=== PATIENT | female | born 1960 | race African-American/Black ===

== ENCOUNTER → 2021-04-25 | Day surgery (SDC) | payer OTHER ==
[~2021-04-25] VITALS: Ht 162.6 cm; Wt 67.0 kg
[~2021-04-25] MED LIST: CHOL5000 PO; LATA2.5D2 OU; LIDOCAINE 1%/EPI 1:100,000 20 ML VIAL. INJ ONE; MULT-496 PO
[2021-04-25 09:54] VITALS: BP 120/79
--- NOTE | 2021-04-25 10:17 | PREOP HP ---
DATE OF SERVICE: 04/25/2021 HISTORY OF PRESENT ILLNESS: The patient was referred by Dr. Silveira because of a mass of the abdominal wall. Apparently, she has had a history which included in 2001 a hysterectomy and about 2014 had a bowel obstruction from adhesions and had surgery for that. Since then, she has had an increasing mass of abdominal wall, it is above and below the umbilicus and the scar goes just to the left of the umbilicus and carries down and is beginning to be pedunculated. This is obviously not a hypertrophic scar, nor a skin tag. The mass she had it, they tried to inject it and were unsuccessful. At any rate, she is referred to me by her tax associate attorney. PAST MEDICAL HISTORY: Unremarkable except for that as previously mentioned. MEDICATIONS: She does not take any medicine for any diseases. ALLERGIES: SHE IS ALLERGIC TO LATEX. SOCIAL HISTORY: She does not drink or use any illegal drug or smoke. FAMILY HISTORY: Noncontributory. She has not had any of these problems before. PHYSICAL EXAMINATION: GENERAL: Shows an alert female in no acute distress. HEAD, EARS, EYES, NOSE AND THROAT: Grossly normal. CHEST: Clear bilaterally to auscultation. HEART: Had no murmurs, heaves, friction, rubs or thrills. The rate was 70 beats per minute and it was regular. BREASTS: Examination of the breasts was not done. ABDOMEN: Soft. There was no organomegaly and no tenderness, no distention. Pelvic was not done. The midline scar, which extended just to the left and a little bit above the umbilicus from the lysis of adhesions was noted. The upper part of the scar was quite large, has a mass, which is dark thick appears to be going in to the surrounding skin and is painful at times. There is no erythema or redness at this point, but this is obviously a keloid. This is not a hypertrophic scar. At any rate, she has been enlarging and that causing her difficulties with the Velcros across her abdomen there and this large mass causes pain and therefore it needs to be removed. EXTREMITIES: Grossly normal. IMPRESSION AND PLAN: Keloid scar, abdominal wall. Spoke to the patient at length. She understands the procedure and wishes this to be removed and understand most likely it will come back unless she is seen by a tax associate attorney and they could treat it so that it would not have recurrence of the same. She understands that and wishes this to be done. We will proceed. EVANGELIST DR: Sandip TID: [id number]
--- NOTE | 2021-04-25 11:41 | PDOC ---
SURGICAL PROGRESS NOTE DATE: 04/25/21 TIME: 11:40 No change in dictated H&P. Vital Signs Vital Signs Date Time Temp Pulse Resp B/P (MAP) Pulse Ox O2 Delivery O2 Flow Rate FiO2 04/25/21 09:54 83 20 99 Justicifation of Admission Dx: Justifications for Admission: Justification of Admission Dx: Yes BRAULIO WASHINGTON MD Apr 25, 2021 11:41
--- NOTE | 2021-04-25 11:46 | PDOC ---
SURGICAL PROGRESS NOTE DATE: 04/25/21 TIME: 11:43 Op Note: Surgeon........................................Joe Pre op diag....................................9cm mass abd wall Prost op diag.................................same Keloid Anesthesia....................................1% lydocaine with epi Procedure.....................................exc abd wall mass Drains...........................................none Blood loss......................................4cc Fluids...........................................none Condition......................................satisfactory Vital Signs Vital Signs Date Time Temp Pulse Resp B/P (MAP) Pulse Ox O2 Delivery O2 Flow Rate FiO2 04/25/21 09:54 83 20 99 Justicifation of Admission Dx: Justifications for Admission: Justification of Admission Dx: Yes BRAULIO WASHINGTON MD Apr 25, 2021 11:46
--- NOTE | 2021-04-25 11:53 | DISCH ---
DISCHARGE INSTRUCTIONS Condition on Discharge Condition on Discharge: Stable Activity After Discharge Activity Instructions for Disc: Avoid exertion Diet after Discharge Additional Diet Restrictions: none Wound Incision Care Other wound/incision instructi: may shower and leave dressing on as long as possible Follow-Up Follow up with: call and make appt to see me in 10-14 days BRAULIO WASHINGTON MD Apr 25, 2021 11:53
--- NOTE | 2021-04-25 16:31 | OP ---
DATE OF SURGERY: 04/25/2021 SURGEON: Tani Diaz MD PREOPERATIVE DIAGNOSIS: Mass of the skin keloid formation to the left inferior and superior to the umbilicus. POSTOPERATIVE DIAGNOSIS: Mass of the skin keloid formation to the left inferior and superior to the umbilicus. ANESTHESIA: 1% lidocaine with epinephrine. PROCEDURE: Excision of 9 cm mass, abdominal wall. TECHNIQUE: Under local anesthesia, this was to be done. The abdomen was prepped with Betadine solution and then draped in the routine fashion. We then injected in a sterile fashion with 1% lidocaine and epinephrine. We did this around the mass, which was a keloid formation superior, lateral and inferior to the umbilicus. We anesthetized all of the skin to be excised and there was no pain and then used a 15 blade to go completely around this mass, which was longitudinal in nature and had taken all of the keloid formation and scar. We did this with a 15 blade and then with Metzenbaum scissors, cut it from the underlying subcutaneous tissue and scar tissue as she had had surgery there before. Bleeding was controlled with cautery and the mass was sent to the lab. Surprisingly, we were able to approximate the wound, which was about 9-10 cm in length and one being about 2-3 cm in width. We were able to use interrupted 4-0 Vicryl to approximate the subcutaneous and deep dermis and it came out with excellent cosmetic result. After this had been done, we then closed the skin using interrupted 4-0 nylon sutures. The procedure was terminated as a sterile Tegaderm dressing was applied. The blood loss was 4 mL. Fluids given, none. No drains were used and the condition of the patient was satisfactory as she was returned to the area to speak with the nurses and me. As stated before, the blood loss was about 4 mL. The procedure was now terminated. The condition of the patient was satisfactory. As stated before, there were no drains and no fluids were given. VICKY/RENAE DR: Sandip TID: [id number]
--- NOTE | 2021-04-28 17:09 | PATHOLOGY ---
[facility] Accession Number: [id number] . 01 Material submitted: . abdomen - ABD WALL MASS. Modifiers: wall . 01 Clinical history: . EXC MASS ABDOMINAL WALL . 02 Diagnosis: Skin and subcutaneous tissue, abdominal wall mass excision: - Keloid. (JPM:brown; 04/28/2021) QMS 04/28/2021 0903 Local . 02 Comment: There is no evidence of malignancy. (JPM:brown; 04/28/2021) . 02 Electronically signed: . Jacky Sow MD, Pathologist NPI- [id number] . 01 Gross description: . The specimen is received in formalin, labeled "Dial, Meli, abd wall mass" and consists of an unoriented somewhat elliptical skin excision (5.0 x 1.7 cm, excised to a depth of 0.3 cm) which is surfaced with brown smooth skin that displays 2 brown firm wrinkled polypoid lesions (2.1 x 1.4 x 1.3 cm and 2.6 x 2.5 x 1.7 cm), each of which involves the surgical margin (inked black). The specimen is serially sectioned to reveal trevino-white, whorled and fibrotic lesional cut surfaces. [employer] sections are submitted as follows: A1: Smaller lesion, represented A2: Section dividing both lesions, entirely submitted A3-A4: Larger lesion, represented ([place]; 04/26/2021) DKA/DKA 04/26/2021 1026 Local . 02 Pathologist provided ICD-10: L91.0 . 02 CPT . 906790 Specimen Comment: A courtesy copy of this report has been sent to [phone], [phone] Specimen Comment: [phone] Specimen Comment: Report sent to / DR PINK Specimen Comment: A duplicate report has been generated due to demographic updates. Performed at: 01 [facility] [address] [id number] MD Aries Palmer MD Phone: [phone] Performed at: [address] [id number] MD Jacky Sow MD Phone: [phone]
== END | disposition home or self-care (01) ==
LOC: SURG 09:21
PROVIDERS: ATTEND Specialist
DX: R19.00 Intra-abdominal and pelvic swelling, mass and lump, unspecified site (principal); L91.0 Hypertrophic scar; F41.9 Anxiety disorder, unspecified; F32.9 Major depressive disorder, single episode, unspecified; Z90.710 Acquired absence of both cervix and uterus; Z98.890 Other specified postprocedural states; Z79.899 Other long term (current) drug therapy
CPT/HCPCS: 11406; 88305; J3490